=== PATIENT | female | born 1995 | race American Indian/Alaskan Native ===

== ENCOUNTER 2022-02-15 12:24 | Emergency (ER) | payer MEDICAID ==
[2022-02-15] MEDS ORDERED: diphenhydrAMINE 50 MG/ML VIAL IM ONE (13:34)
[2022-02-15] MEDS ORDERED: ZIPRASIDONE MESYLATE 20 MG VIAL IM ONE ×2 (13:34→17:56)
[2022-02-15] MEDS ORDERED: LORazepam 2 MG/ML VIAL IM ONE (13:34)
[2022-02-15 14:42] VITALS: BP 143/99
--- NOTE | 2022-02-15 15:01 | Cat Scan Report ---
CT BRAIN: 02/15/2022 INDICATION / CLINICAL INFORMATION: Psych clearance. COMPARISON: 08/20/2021 FINDINGS: BRAIN/INTRACRANIAL STRUCTURES: Unenhanced CT images of the brain demonstrate no evidence of acute abn ormality. Ventricles and sulci are normal in size and shape. There is no evidence of ischemic injury, EXTRACRANIAL STRUCTURES: Unremarkable. IMPRESSION: No acute abnormality. No change when compared to 08/20/2021. All CT scans at this location are performed using dose reduction to ALARA by means of automated expos ure control. Signer Name: Abbe Hernandez MD Signed: 02/15/2022 2:18 PM Workstation Name: [id number]
--- NOTE | 2022-02-15 15:03 | Emergency Department Report ---
ED Psych HPI - General Stated Complaint: PYSCH Time Seen by Provider: 02/15/22 13:34 Source: patient, old records reviewed Mode of arrival: Ambulatory Limitations: Other - History of Present Illness Initial Comments: Female with unknown age and name presents to the hospital for unclear reason. Patient presented to triage. She refused to speak, refused to make eye contact, and was beginning to pull her clothes off. I evaluated patient in triage and she is standing against a wall with her eyes closed. Mild tachycardia noted on exam. Patient refuses to answer questions. 1013 signed for suspected psychosis and orders placed. Prior to discharge patient's identity was provided. She is a 26-year-old female without a documented psychiatric history as per medical record review. History of cholecystectomy and smoking marijuana - Related Data Allergies Allergy/AdvReac Type Severity Reaction Status Date / Time Unable to Assess Allergy Verified 02/15/22 16:02 ED Review of Systems ROS: Stated complaint: PYSCH Other details as noted in HPI ED Physical Exam - Other Other exam information: General: No acute distress Head: Atraumatic Eyes: normal appearance ENT: Moist mucous membranes Neck: Normal appearance, no midline tenderness Chest: Clear to auscultation bilaterally CV: Tachycardia regular rate Abdomen: Soft, normal bowel sounds, nontender, nondistended, no rebound or guarding Back: Normal inspection Extremity: Normal inspection, full range of motion Neuro: Alert, ambulates without difficulty, nonverbal, no focal weakness, sensation grossly intact Psych: Poor eye contact, nonverbal, intermittently uncooperative Skin: No rash ED Course Vital Signs 02/15/22 14:41 Temperature 98.9 F Pulse Rate 100 H Respiratory 20 Rate Blood Pressure 143/99 [Right] O2 Sat by Pulse 100 Oximetry - Reevaluation(s) Reevaluation #1: 02/15/22 19:14 Patient laying in the stretcher and was noncombative however, when blood draw was attempted she will withdraw her arm and was uncooperative. She 02/15/22 19:42 Patient slept during the majority of her ED stay. Legal Arbitrator informed me that patient is speaking, states she wants to go home, and refusing blood draw. I went to reinterview patient. Patient is now able to state her name and date of (although we had to request this information several times). Patient states she came here for something in her finger and states that she told the triage nurse while she was here. She did not like the response of the triage nurse and states she has refused to speak since then since no one is helping her. Previous medical record reviewed and it does not appear that patient has a previous psych history. I still suspect underlying psych disorder and patient did not began to speak until she received antipsychotic medication. At this time she does not appear to have disorganized thought process or behavior nor does she endorse suicidal homicidal ideation. Therefore 1013 will be rescinded and patient will be discharged home with outpatient resources. She refuses to be reexamined reevaluated for her initial finger complaint ED Medical Decision Making - Radiology Data Radiology results: report reviewed CT BRAIN: 02/15/2022 INDICATION / CLINICAL INFORMATION: Psych clearance. COMPARISON: 08/20/2021 FINDINGS: BRAIN/INTRACRANIAL STRUCTURES: Unenhanced CT images of the brain demonstrate no evidence of acute abnormality. Ventricles and sulci are normal in size and shape. There is no evidence of ischemic injury, EXTRACRANIAL STRUCTURES: Unremarkable. IMPRESSION: No acute abnormality. No change when compared to 08/20/2021. - Medical Decision Making Patient presents to the hospital initially not speaking with unknown name and date of . After receiving Geodon and Benadryl patient began speaking and refused further care. Patient states she wants to go home because we are not doing anything for her and states that she refused to speak because she was upset and tired of answering the same questions. I do suspect that patient does have underlying psychiatric disorder with possible psychosis causing withdrawn behavior. Patient does not meet 1013 criteria at this time and does not appear to be disorganized or have suicidal or homicidal ideation. I have discontinued initial 1013 for refusal to speak and bizarre behavior. CT head was negative and I was unable to obtain any additional blood or urine results during ED stay. She will be discharged with outpatient psychiatric resources since he refuses additional treatment and work-up - Differential Diagnosis Psychosis, drug abuse, Critical Care Time: No Critical care attestation.: If time is entered above; I have spent that time in minutes in the direct care of this critically ill patient, excluding procedure time. ED Disposition Clinical Impression: Mood disorder, Refusal of treatment Disposition: HOME / SELF CARE / HOMELESS Is pt being admited?: No Does the pt Need Aspirin: No Condition: Stable Instructions: Psychosis Additional Instructions: You have refused additional work-up and further treatment. Professional and Agency Contacts To help [facility] (14/02) [place] Crisis Line: Suicide Prevention Line: Crisis Text Line: Text ``START to 728551 Emergency: 911 Outpatient [facility] Behavioral Health Resources: MICHELLE[facility]: [facility] [address], [place] [address] [facility] [address] [place] [address] Tuesday thru Tuesday - 8am - 5pm Call to schedule an assessment for mental health and substance abuse programs [facility] Address: [address] [place] [address] Tuesday thru Tuesday- 7am-2pm [facility] Address: [address] [place] [address] Tuesday thrtuesday: 8:30AM-5PM Referrals: [facility] [Provider Group] - 3-5 Days Time of Disposition: 20:09
[2022-02-15] MEDS ORDERED: diphenhydrAMINE 50 MG/ML VIAL ONE (17:55)
[2022-02-15] MEDS ORDERED: WATER FOR INJ Sterile (PF) 10 ML ONE (17:56)
== END 2022-02-15 20:31 | disposition home or self-care (01) ==
LOC: ED 12:24
DX: F39 Unspecified mood [affective] disorder (principal)
CPT/HCPCS: 70450; 96372; 99283; J1200; J3486

== ENCOUNTER 2022-02-16 10:51 | Emergency (ER) | payer MEDICAID ==
--- NOTE | 2022-02-16 10:57 | Event Note ---
ED Screening Note ED Screening Note: 26-year-old female that was here in the ER yesterday for unclear reasons. She presents again today after expressing SI to her roommate. She is accompanied by police. She has been 1013. She has a mental health history. NOAH is requested [facility] bed. This initial assessment/diagnostic orders/clinical plan/treatment(s) is/are subject to change based on patients health status, clinical progression and re- assessment by fellow clinical providers in the ED. Further treatment and workup at subsequent clinical providers discretion. Patient/guardian urged not to elope from the ED as their condition may be serious if not clinically assessed and managed. Initial orders include: 1013
--- NOTE | 2022-02-16 11:28 | Emergency Department Report ---
ED Psych HPI - General Chief Complaint: Psych Stated Complaint: EVALUATION Time Seen by Provider: 02/16/22 10:54 Source: family, police Mode of arrival: Wheelchair - History of Present Illness Initial Comments: 26-year-old female with unknown past medical history brought in by family and police after behaving erratically, and family having to call police to physically remove her from their vehicle. Patient's family endorsed that patient has been behaving bizarrely at home, recently. Family reported that patient is in treatment with "shots" for mental illness, but has not divulged which diagnosis she has been giving. Patient is uncooperative, appears catatonic on my evaluation and is not answering questions or allowing treatment or evaluation, at this time. Patient was seen here, in the emergency department at [facility], yesterday. - Related Data Allergies Allergy/AdvReac Type Severity Reaction Status Date / Time Unable to Assess Allergy Verified 02/16/22 11:03 ED Review of Systems ROS: Stated complaint: EVALUATION Other details as noted in HPI Comment: Unobtainable due to pts medical conditions (Patient is uncooperative and appears to be acutely psychotic) Respiratory: denies: shortness of breath Gastrointestinal: denies: vomiting, diarrhea Skin: denies: lesions Neurological: confusion Psychiatric: auditory hallucinations, visual hallucinations, other (bizarre behavior) ED Physical Exam - General Limitations: Altered Mental Status General appearance: alert, in no apparent distress, anxious, obese, other (uncooperative) - Head Head exam: Present: atraumatic, normocephalic - Eye Eye exam: Present: normal appearance - ENT ENT exam: Present: mucous membranes moist - Neck Neck exam: Present: normal inspection - Respiratory Respiratory exam: Present: normal lung sounds bilaterally. Absent: respiratory distress - Cardiovascular Cardiovascular Exam: Present: regular rate, tachycardia. Absent: normal rhythm, systolic murmur, diastolic murmur, rubs, gallop - GI/Abdominal GI/Abdominal exam: Present: soft, normal bowel sounds. Absent: tenderness - Rectal Rectal exam: Present: deferred - Extremities Exam Extremities exam: Present: normal inspection, full ROM, normal capillary refill. Absent: tenderness, joint swelling - Back Exam Back exam: Present: normal inspection - Neurological Exam Neurological exam: Present: alert, other (Unable to fully evaluate because of acute psychosis). Absent: oriented X3 - Psychiatric Psychiatric exam: Present: agitated, anxious, manic. Absent: normal affect, normal mood - Skin Skin exam: Present: warm, dry, intact, normal color. Absent: rash ED Course Vital Signs 02/16/22 02/16/22 16:28 21:58 Temperature 99.2 F Pulse Rate 146 H Respiratory 16 Rate Blood Pressure 151/111 [Left] O2 Sat by Pulse 99 100 Oximetry - Reevaluation(s) Reevaluation #1: 02/16/22 21:42 Patient is still awake and agitated and uncooperative. Patient is laying on the floor in her room refusing to wear any clothes and has her legs spread apart. I have ordered another round of sedation to assist being able to medically clear her with urine analysis and COVID swab. ED Medical Decision Making - Lab Data Result diagrams: 02/16/22 11:13 02/16/22 11:13 - Differential Diagnosis Acute psychosis, malingering, substance abuse Critical care attestation.: If time is entered above; I have spent that time in minutes in the direct care of this critically ill patient, excluding procedure time. ED Disposition Clinical Impression: Mood disorder, Refusal of treatment Disposition: 30 STILL A PATIENT Is pt being admited?: No Condition: Stable Referrals: KHUSHBU ODELL MD [Primary Care Provider] - 3-5 Days
[2022-02-16] MEDS ORDERED: LORazepam 2 MG/ML VIAL IM ONE (11:30)
[2022-02-16] MEDS ORDERED: diphenhydrAMINE 50 MG/ML VIAL IM ONE ×2 (11:32→21:29)
[2022-02-16 11:49] LABS: Calcium 10.1 mg/dL (8.4-10.2)
[2022-02-16 12:17] LABS: Basophils % (Auto) 0.2 % (0.0-1.8); Eosinophils % (Auto) 0.1 % (0.0-4.3); Hematocrit 43.4 % (30.3-42.9); Hemoglobin 14.1 gm/dl (10.1-14.3); Lymphocytes # (Auto) 1.6 K/mm3 (1.2-5.4); Lymphocytes % (Auto) 12.2 % (13.4-35.0); Mean Corpuscular HGB Conc 33 % (30-34); Mean Corpuscular Volume 100 fl (79-97); Monocytes # (Auto) 0.9 K/mm3 (0.0-0.8); Monocytes % (Auto) 6.5 % (0.0-7.3); Platelet Count 299 K/mm3 (140-440); Red Blood Count 4.35 M/mm3 (3.65-5.03); Red Cell Distribution Width 13.3 % (13.2-15.2)
[2022-02-16] MEDS: ZIPRASIDONE MESYLATE 20 MG VIAL IM PRN (12:17)
[2022-02-16] MEDS ORDERED: ZIPRASIDONE MESYLATE 20 MG VIAL IM ONE (21:29)
[2022-02-16] MEDS ORDERED: diazePAM 10 MG/2 ML SYRINGE IM ONE (21:30)
--- NOTE | 2022-02-17 15:26 | Consultation ---
History of Present Illness - Reason for Consult Consult date: 02/16/22 Reason for consult: MHE - Chief Complaint Chief complaint: HPI 26year old female was seen yesterday in the ER. Patient stated that she didn't know that reason she was brought in and states that " I just wanted Wilmer to go get my wallet". Patient wasn't able to give an accurate account of who brought her to the hospital and for what reason. Will follow patient, and recommend inpatient psychiatric hospitalization. PAST PSYCHIATRIC HISTORY: Diagnoses: Unknown Suicide attempts or Self-harm behavior: Unable to assess Prior psychiatric hospitalizations:Unable to assess Substance Abuse history:Unable to assess Previous psychiatric medications tried: Unable to assess Outpatient treatment: Unable to assess PAST MEDICAL HISTORY: Family Psychiatric History None reported or documented SOCIAL HISTORY Marital Status: States she is single Living Arrangements: With Wilmer her roommate Employment Status: Unemployed Access to guns/weapons: Unable to assess Education: High school History of Abuse: Unable to assess Legal History: Unable to assess REVIEW OF SYSTEMS ROS cannot be reliably obtained from the patient due to her confusion and somnolence. Constitutional: Negative for weight loss ENT: Negative for stridor Respiratory: Negative for cough or hemoptysis All other systems reviewed and are negative MENTAL STATUS General Appearance and Behavior: poor Cooperation: Cooperative Psychomotor Behavior: poor Mood: Anxious Affect and affective range: Congruent with stated mood Thought Process: Confused Thought Content: Unable to assess Speech: Normal volume and Regular rate and rhythm Intellectual Functioning Average Suicidal Ideation: Unable to assess Homicidal Ideation: Unable to assess Impulse Control: Poor Insight and Judgment: Poor Memory: Unable to assess Attention: Poor Orientation: Unable to assess RECOMMENDATIONS PSYCHOTHERAPY: Supportive psychotherapy provided MEDICAL: Per primary team DELIRIUM PRECAUTIONS: Please re-orient patient frequently, keep lights on during the day, and minimize benzodiazepines and opiates as these medications could worsen patient's confusion. SHOE STOCK ASSOCIATE: Defer to primary team DISPOSITION: Per primary team, acute inpatient psychiatric hospitalization when medically stable LEGAL STATUS: 1013 FOLLOW-UP: Will follow Medications and Allergies Allergies Allergy/AdvReac Type Severity Reaction Status Date / Time Unable to Assess Allergy Verified 02/16/22 11:03 Active Meds: Active Medications Ziprasidone (Ziprasidone Mesylate 20 Mg Vial) 10 mg IM Q2H PRN PRN Reason: Agitation Last Admin: 02/16/22 12:17 Dose: 10 mg Mental Status Exam - Vital signs Last Vital Signs Temp 98 F 02/17/22 14:22 Pulse 106 H 02/17/22 14:22 Resp 18 02/17/22 14:22 BP 139/95 02/17/22 14:22 Pulse Ox 97 02/17/22 14:22 Results Result Diagrams: 02/16/22 11:13 02/16/22 11:13 All other labs normal.
--- NOTE | 2022-02-17 15:31 | Progress Note ---
Subjective - Reason for Consult Reason for consult: MHE - Chief Complaint Chief complaint: Patient seen today in the ER. Patient took of all her clothes and defecated on the floor. Unable to communicate with patient at this time. Recommend inpatient psychiatric evaluation at this time. PAST PSYCHIATRIC HISTORY: Diagnoses: Unknown Suicide attempts or Self-harm behavior: Unable to assess Prior psychiatric hospitalizations:Unable to assess Substance Abuse history:Unable to assess Previous psychiatric medications tried: Unable to assess Outpatient treatment: Unable to assess PAST MEDICAL HISTORY: Family Psychiatric History None reported or documented SOCIAL HISTORY Marital Status: States she is single Living Arrangements: With Wilmer her roommate Employment Status: Unemployed Access to guns/weapons: Unable to assess Education: High school History of Abuse: Unable to assess Legal History: Unable to assess REVIEW OF SYSTEMS ROS cannot be reliably obtained from the patient due to her confusion and somnolence. Constitutional: Negative for weight loss ENT: Negative for stridor Respiratory: Negative for cough or hemoptysis All other systems reviewed and are negative MENTAL STATUS General Appearance and Behavior: poor Cooperation: Cooperative Psychomotor Behavior: poor Mood: Anxious Affect and affective range: Congruent with stated mood Thought Process: Confused Thought Content: Unable to assess Speech: Normal volume and Regular rate and rhythm Intellectual Functioning Average Suicidal Ideation: Unable to assess Homicidal Ideation: Unable to assess Impulse Control: Poor Insight and Judgment: Poor Memory: Unable to assess Attention: Poor Orientation: Unable to assess RECOMMENDATIONS PSYCHOTHERAPY: Supportive psychotherapy provided MEDICAL: Per primary team DELIRIUM PRECAUTIONS: Please re-orient patient frequently, keep lights on during the day, and minimize benzodiazepines and opiates as these medications could worsen patient's confusion. COMMUNICATIONS EXECUTIVE: Defer to primary team DISPOSITION: Per primary team, acute inpatient psychiatric hospitalization when medically stable LEGAL STATUS: 1013 FOLLOW-UP: Will follow Mental Status Exam - Vital signs Last Vital Signs Temp 98 F 02/17/22 14:22 Pulse 106 H 02/17/22 14:22 Resp 18 02/17/22 14:22 BP 139/95 02/17/22 14:22 Pulse Ox 97 02/17/22 14:22
[2022-02-17] MEDS: risperiDONE 0.25 MG TAB PO SCH ×3 (16:15→23:14)
--- NOTE | 2022-02-17 18:16 | Event Note ---
Date: 02/17/22 Reassessment by psych today was unsuccessful due to patient taking off her close and defecating on herself. Patient remains a 1013.
[2022-02-18] MEDS: ZIPRASIDONE MESYLATE 20 MG VIAL IM PRN ×2 (08:28→14:01)
[2022-02-18] MEDS: risperiDONE 0.25 MG TAB PO SCH ×2 (09:45→22:00)
--- NOTE | 2022-02-18 15:37 | Progress Note ---
Subjective - Reason for Consult Reason for consult: MHE - Chief Complaint Chief complaint: Date of service: 02/18/22 Patient seen today. Patient states that she is "Doing ok". Patient states that she is hearing voices to "Get out of my head" Patient stopped talking after these sentences and started to pace and play with the gloves she had on. Patient also observed playing with the trash bag, and tried touching me. Patient waiting inpatient placement. Patient seen today in the ER. Patient took of all her clothes and defecated on the floor. Unable to communicate with patient at this time. Recommend inpatient psychiatric evaluation at this time. PAST PSYCHIATRIC HISTORY: Diagnoses: Unknown Suicide attempts or Self-harm behavior: Unable to assess Prior psychiatric hospitalizations:Unable to assess Substance Abuse history:Unable to assess Previous psychiatric medications tried: Unable to assess Outpatient treatment: Unable to assess PAST MEDICAL HISTORY: Family Psychiatric History None reported or documented SOCIAL HISTORY Marital Status: States she is single Living Arrangements: With Wilmer her roommate Employment Status: Unemployed Access to guns/weapons: Unable to assess Education: High school History of Abuse: Unable to assess Legal History: Unable to assess REVIEW OF SYSTEMS ROS cannot be reliably obtained from the patient due to her confusion and somnolence. Constitutional: Negative for weight loss ENT: Negative for stridor Respiratory: Negative for cough or hemoptysis All other systems reviewed and are negative MENTAL STATUS General Appearance and Behavior: poor Cooperation: Cooperative Psychomotor Behavior: poor Mood: Anxious Affect and affective range: Congruent with stated mood Thought Process: Confused Thought Content: Unable to assess Speech: Normal volume and Regular rate and rhythm Intellectual Functioning Average Suicidal Ideation: Unable to assess Homicidal Ideation: Unable to assess Impulse Control: Poor Insight and Judgment: Poor Memory: Unable to assess Attention: Poor Orientation: Unable to assess RECOMMENDATIONS PSYCHOTHERAPY: Supportive psychotherapy provided MEDICAL: Per primary team DELIRIUM PRECAUTIONS: Please re-orient patient frequently, keep lights on during the day, and minimize benzodiazepines and opiates as these medications could worsen patient's confusion. MANUFACTURING SPECIALIST: Defer to primary team DISPOSITION: Per primary team, acute inpatient psychiatric hospitalization when medically stable LEGAL STATUS: 1013 FOLLOW-UP: Will follow Mental Status Exam - Vital signs Last Vital Signs Temp 98.7 F 02/18/22 08:29 Pulse 126 H 02/18/22 08:29 Resp 20 02/18/22 08:29 BP 139/86 02/18/22 08:29 Pulse Ox 97 02/18/22 08:30
--- NOTE | 2022-02-18 15:56 | Event Note ---
Date: 02/18/22 Patient's chart reviewed. Vital signs stable. Patient reassessed by me. She is observed to be lying supine on her stretcher, talking to herself, her legs are in the air,. Patient continues to await final disposition by psychiatry
[2022-02-19] MEDS: risperiDONE 0.25 MG TAB PO SCH (09:32)
--- NOTE | 2022-02-19 11:29 | Progress Note ---
Subjective - Reason for Consult Consult date: 02/19/22 Reason for consult: psychosis - Chief Complaint Chief complaint: The patient was seen today. She is in seclusion. She is acting bizarrely. She is acutely psychotic. She is eating with her hands. She is standing in front of the window squeezing the carton of juice out into her mouth. Her shirt is ripped and tied on her. Her breast are hanging out of two holes that she made in the shirt. The patient is malodorous. She says she's hearing voices telling her they love her. I ask the patient if she knows where she is, she replies "everywhere." She then keeps repeating "they love me." Will continue to recommend inpatient psychiatric treatment REVIEW OF SYSTEMS Unable to assess MENTAL STATUS Unable to assess Assessment: Schizophrenia Treatment Plan 1013 Please obtain and document allergies Increase Risperidone 1mg po BID PSYCHOTHERAPY: Supportive psychotherapy provided MEDICAL: Per primary team DELIRIUM PRECAUTIONS: Please re-orient patient frequently, keep lights on during the day, and minimize benzodiazepines and opiates as these medications could worsen patient's confusion. RAYMOND MILL OPERATOR: Defer to primary team DISPOSITION: Recommend acute psychiatric inpatient treatment FOLLOW-UP: Will follow. Thanks Case staffed with Dr. Finley Mental Status Exam - Vital signs Last Vital Signs Temp 97.8 F 02/19/22 03:22 Pulse 114 H 02/19/22 03:22 Resp 18 02/19/22 03:22 BP 164/92 02/19/22 03:22 Pulse Ox 97 02/19/22 03:22
[2022-02-19] MEDS ORDERED: DIVALPROEX DR 125 MG TAB PO SCH (12:00)
[2022-02-19] MEDS: risperiDONE 1 MG TAB PO SCH ×2 (16:50→22:10)
--- NOTE | 2022-02-19 18:59 | Emergency Department Report ---
Blank Doc - Documentation Documentation: Chart reviewed 26-year-old female remains on 1013. Requiring seclusion. Intermittently refusing p.o. medication. Urine collection pending. Placement pending
--- NOTE | 2022-02-20 09:39 | Progress Note ---
Subjective - Reason for Consult Consult date: 02/20/22 Reason for consult: psychosis - Chief Complaint Chief complaint: The patient was seen today. She is in seclusion. Her room is trashed. She is acutely psychotic. The patient is standing at the window holding her arm up with her index finger pointed to the ceiling. She is naked. Will continue to recommend inpatient psychiatric treatment. Unable to obtain allergies. Will continue current plan until obtained and documented. REVIEW OF SYSTEMS Unable to assess MENTAL STATUS Unable to assess Assessment: Schizophrenia Treatment Plan 1013 Please obtain and document allergies Risperidone 1mg po BID PSYCHOTHERAPY: Supportive psychotherapy provided MEDICAL: Per primary team DELIRIUM PRECAUTIONS: Please re-orient patient frequently, keep lights on during the day, and minimize benzodiazepines and opiates as these medications could worsen patient's confusion. SOLDER MAKING LABORER: Defer to primary team DISPOSITION: Recommend acute psychiatric inpatient treatment FOLLOW-UP: Will follow. Thanks Case staffed with Dr. Finley Mental Status Exam - Vital signs Last Vital Signs Temp 97.8 F 02/19/22 03:22 Pulse 114 H 02/19/22 03:22 Resp 18 02/19/22 03:22 BP 164/92 02/19/22 03:22 Pulse Ox 97 02/19/22 03:22
[2022-02-20] MEDS: risperiDONE 1 MG TAB PO SCH ×2 (11:27→22:16)
[2022-02-20] MEDS: ZIPRASIDONE MESYLATE 20 MG VIAL IM PRN (13:40)
--- NOTE | 2022-02-20 14:43 | Event Note ---
Date: 02/20/22 The patient was evaluated in the emergency department for symptoms described in the history of present illness. He/she was evaluated in the context of the global COVID-19 pandemic, which necessitated consideration that the patient might be at risk for infection with the virus that causes COVID-19. Institutional protocols and algorithms that pertain to the evaluation of patients at risk for COVID-19 are in a state of rapid change based on information released by regulatory bodies including the CDC and federal and state organizations. These policies and algorithms were followed during the patient's care in the emergency department. Please note that these policies, procedures and recommendations changed on a rapid basis. Laboratory studies, vital signs, nursing documentation, ER documentation, and psychiatric documentation are reviewed and appreciated. The patient is awake and psychotic and naked in her room. Nursing team will communicate with psychiatric team to request IM as needed medications, as the patient is refusing oral medications. The patient is awake and ambulating and she is protecting her airway. The patient was deemed medically suitable for psychiatric disposition and placement during her initial ER evaluation. The patient continues to remain medically suitable for psychiatric placement and disposition. She is currently pending psychiatric placement. The emergency room will follow along as the patient provides urinalysis and drug screen. These tests are not required to exclude emergent medical conditions. This patient remains medically suitable for psychiatric placement and disposition at this time Vital Signs 02/16/22 02/16/22 02/17/22 16:28 21:58 11:00 Temperature 99.2 F Pulse Rate 146 H Respiratory 16 Rate Blood Pressure 151/111 [Left] Blood Pressure [Right] O2 Sat by Pulse 99 100 97 Oximetry 02/17/22 02/17/22 02/17/22 14:22 20:38 21:10 Temperature 98 F 98.9 F Pulse Rate 106 H 100 H Respiratory 18 16 18 Rate Blood Pressure 139/95 153/82 [Left] Blood Pressure [Right] O2 Sat by Pulse 97 98 98 Oximetry 02/18/22 02/18/22 02/18/22 08:29 08:30 21:43 Temperature 98.7 F Pulse Rate 126 H 99 H Respiratory 20 18 Rate Blood Pressure 139/86 140/60 [Left] Blood Pressure [Right] O2 Sat by Pulse 97 97 98 Oximetry 02/19/22 02/20/22 03:22 11:26 Temperature 97.8 F Pulse Rate 114 H Respiratory 18 Rate Blood Pressure [Left] Blood Pressure 164/92 [Right] O2 Sat by Pulse 97 96 Oximetry Lab Results 02/16/22 02/16/22 02/16/22 Range/Units 11:13 11:13 11:13 WBC 13.1 H (4.5-11.0) K/mm3 RBC 4.35 (3.65-5.03) M/mm3 Hgb 14.1 (10.1-14.3) gm/dl Hct 43.4 H (30.3-42.9) % MCV 100 H (79-97) fl MCH 32 (28-32) pg MCHC 33 (30-34) % RDW 13.3 (13.2-15.2) % Plt Count 299 (140-440) K/mm3 Lymph % (Auto) 12.2 L (13.4-35.0) % [place] % (Auto) 6.5 (0.0-7.3) % Eos % (Auto) 0.1 (0.0-4.3) % Baso % (Auto) 0.2 (0.0-1.8) % Lymph # (Auto) 1.6 (1.2-5.4) K/mm3 [place] # (Auto) 0.9 H (0.0-0.8) K/mm3 Eos # (Auto) 0.0 (0.0-0.4) K/mm3 Baso # (Auto) 0.0 (0.0-0.1) K/mm3 Seg Neutrophils % 81.0 H (40.0-70.0) % Seg Neutrophils # 10.6 H (1.8-7.7) K/mm3 Sodium 139 (137-145) mmol/L Potassium 4.1 (3.6-5.0) mmol/L Chloride 99.8 (98-107) mmol/L Carbon Dioxide 20 L (22-30) mmol/L Anion Gap 23 mmol/L BUN 9 (7-17) mg/dL Creatinine 1.3 H (0.6-1.2) mg/dL Estimated GFR 59 ml/min BUN/Creatinine Ratio 7 % Glucose 179 H (65-100) mg/dL Calcium 10.1 (8.4-10.2) mg/dL TSH 1.860 (0.270-4.200) mlU/mL HCG, Qual (Negative) Salicylates (2.8-20.0) mg/dL Acetaminophen (10.0-30.0) ug/mL Plasma/Serum Alcohol (0-0.07) % SARS-CoV-2 (PCR) (Negative) 02/16/22 02/16/22 02/16/22 Range/Units 11:13 11:13 11:13 WBC (4.5-11.0) K/mm3 RBC (3.65-5.03) M/mm3 Hgb (10.1-14.3) gm/dl Hct (30.3-42.9) % MCV (79-97) fl MCH (28-32) pg MCHC (30-34) % RDW (13.2-15.2) % Plt Count (140-440) K/mm3 Lymph % (Auto) (13.4-35.0) % [place] % (Auto) (0.0-7.3) % Eos % (Auto) (0.0-4.3) % Baso % (Auto) (0.0-1.8) % Lymph # (Auto) (1.2-5.4) K/mm3 [place] # (Auto) (0.0-0.8) K/mm3 Eos # (Auto) (0.0-0.4) K/mm3 Baso # (Auto) (0.0-0.1) K/mm3 Seg Neutrophils % (40.0-70.0) % Seg Neutrophils # (1.8-7.7) K/mm3 Sodium (137-145) mmol/L Potassium (3.6-5.0) mmol/L Chloride (98-107) mmol/L Carbon Dioxide (22-30) mmol/L Anion Gap mmol/L BUN (7-17) mg/dL Creatinine (0.6-1.2) mg/dL Estimated GFR ml/min BUN/Creatinine Ratio % Glucose (65-100) mg/dL Calcium (8.4-10.2) mg/dL TSH (0.270-4.200) mlU/mL HCG, Qual (Negative) Salicylates < 0.3 L (2.8-20.0) mg/dL Acetaminophen 5.0 L (10.0-30.0) ug/mL Plasma/Serum Alcohol < 0.01 (0-0.07) % SARS-CoV-2 (PCR) (Negative) 02/16/22 02/17/22 Range/Units 11:13 10:08 WBC (4.5-11.0) K/mm3 RBC (3.65-5.03) M/mm3 Hgb (10.1-14.3) gm/dl Hct (30.3-42.9) % MCV (79-97) fl MCH (28-32) pg MCHC (30-34) % RDW (13.2-15.2) % Plt Count (140-440) K/mm3 Lymph % (Auto) (13.4-35.0) % [place] % (Auto) (0.0-7.3) % Eos % (Auto) (0.0-4.3) % Baso % (Auto) (0.0-1.8) % Lymph # (Auto) (1.2-5.4) K/mm3 [place] # (Auto) (0.0-0.8) K/mm3 Eos # (Auto) (0.0-0.4) K/mm3 Baso # (Auto) (0.0-0.1) K/mm3 Seg Neutrophils % (40.0-70.0) % Seg Neutrophils # (1.8-7.7) K/mm3 Sodium (137-145) mmol/L Potassium (3.6-5.0) mmol/L Chloride (98-107) mmol/L Carbon Dioxide (22-30) mmol/L Anion Gap mmol/L BUN (7-17) mg/dL Creatinine (0.6-1.2) mg/dL Estimated GFR ml/min BUN/Creatinine Ratio % Glucose (65-100) mg/dL Calcium (8.4-10.2) mg/dL TSH (0.270-4.200) mlU/mL HCG, Qual Negative (Negative) Salicylates (2.8-20.0) mg/dL Acetaminophen (10.0-30.0) ug/mL Plasma/Serum Alcohol (0-0.07) % SARS-CoV-2 (PCR) Negative (Negative)
[2022-02-20 18:54] LABS: Amphetamine Screen,Urine Negative; Bacteria,Urine 1+ /HPF (Negative); Benzodiazepines Screen,Urine Negative; Cannabinoid Screen,Urine Negative; Cocaine Screen,Urine Negative; Methadone Screen,Urine Negative; Mucus,Urine 1+ /HPF; Opiate Screen,Urine Negative
[2022-02-20 19:16] LABS: Bilirubin,Urine Negative (Negative); Blood,Urine 4+ (Negative); Color,Urine Yellow (Yellow)
[2022-02-20] MEDS ORDERED: LORazepam 2 MG/ML VIAL IM PRN (20:14)
[2022-02-21] MEDS: risperiDONE 1 MG TAB PO SCH ×3 (05:01→22:27)
[2022-02-21] MEDS: HALOPERIDOL LACTATE 5 MG/1 ML INJ IM PRN (05:06)
--- NOTE | 2022-02-21 11:18 | Progress Note ---
Subjective - Reason for Consult Consult date: 02/21/22 Reason for consult: psychosis - Chief Complaint Chief complaint: The patient was seen today. She is a little more calm and organized today, but still psychotic. She appears distracted. She is talking in a low tone. She says she's not taking any of the medication because it makes her numb in some spots. I ask her what medication was she taking that made her feel like this, she continue to repeat "numb in some spots." REVIEW OF SYSTEMS Unable to assess MENTAL STATUS Unable to assess Assessment: Schizophrenia Treatment Plan 1013 If the patient refuses oral antipsychotic please give IM as needed q6h Risperidone 1mg po BID PSYCHOTHERAPY: Supportive psychotherapy provided MEDICAL: Per primary team DELIRIUM PRECAUTIONS: Please re-orient patient frequently, keep lights on during the day, and minimize benzodiazepines and opiates as these medications could worsen patient's confusion. 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 Thanks Case staffed with Dr. Finley Mental Status Exam - Vital signs Last Vital Signs Temp 99.2 F 02/20/22 20:14 Pulse 124 H 02/20/22 20:14 Resp 16 02/20/22 20:14 BP 137/101 02/20/22 20:14 Pulse Ox 98 02/20/22 20:14
--- NOTE | 2022-02-21 16:44 | Event Note ---
Date: 02/21/22 The patient was evaluated in the emergency department for symptoms described in the history of present illness. He/she was evaluated in the context of the global COVID-19 pandemic, which necessitated consideration that the patient might be at risk for infection with the virus that causes COVID-19. Institutional protocols and algorithms that pertain to the evaluation of patients at risk for COVID-19 are in a state of rapid change based on information released by regulatory bodies including the CDC and federal and state organizations. These policies and algorithms were followed during the patient's care in the emergency department. Please note that these policies, procedures and recommendations changed on a rapid basis. Laboratory studies, vital signs, nursing documentation, ER documentation, and psychiatric documentation are reviewed and appreciated. Patient continues to stripped naked. She remains acutely psychotic She is breathing spontaneously, protecting her airway, and moving 4 extremities The patient is awake and laying on her stomach and not in any acute distress The patient was deemed medically suitable for psychiatric disposition and placement during her initial ER evaluation. The patient continues to remain medically suitable for psychiatric placement and disposition. She is currently pending psychiatric placement. Vital Signs 02/16/22 02/16/22 02/17/22 16:28 21:58 11:00 Temperature 99.2 F Pulse Rate 146 H Respiratory 16 Rate Blood Pressure 151/111 [Left] Blood Pressure [Right] O2 Sat by Pulse 99 100 97 Oximetry 02/17/22 02/17/22 02/17/22 14:22 20:38 21:10 Temperature 98 F 98.9 F Pulse Rate 106 H 100 H Respiratory 18 16 18 Rate Blood Pressure 139/95 153/82 [Left] Blood Pressure [Right] O2 Sat by Pulse 97 98 98 Oximetry 02/18/22 02/18/22 02/18/22 08:29 08:30 21:43 Temperature 98.7 F Pulse Rate 126 H 99 H Respiratory 20 18 Rate Blood Pressure 139/86 140/60 [Left] Blood Pressure [Right] O2 Sat by Pulse 97 97 98 Oximetry 02/19/22 02/20/22 02/20/22 03:22 11:26 20:14 Temperature 97.8 F 99.2 F Pulse Rate 114 H 124 H Respiratory 18 16 Rate Blood Pressure [Left] Blood Pressure 164/92 137/101 [Right] O2 Sat by Pulse 97 96 98 Oximetry 02/21/22 02/21/22 11:57 11:58 Temperature 98.7 F Pulse Rate 99 H Respiratory 18 Rate Blood Pressure [Left] Blood Pressure 131/69 [Right] O2 Sat by Pulse 100 100 Oximetry
--- NOTE | 2022-02-22 10:15 | Progress Note ---
Subjective - Reason for Consult Consult date: 02/22/22 Reason for consult: psychosis - Chief Complaint Chief complaint: The patient was seen today. She is in seclusion. Food and food trays are scattered over her floor. She is kicking items in the corner. The patient does answer simple questions, although she is slow to respond. Her affect is flat and she is moving in a slow motion. The patient denies SI/HI or hallucinations, although it is obvious she is responding to internal stimuli. Nurses documented the patient standing on lounge chairs, on knees digging in butt and defecating on floor. REVIEW OF SYSTEMS Unable to assess MENTAL STATUS Unable to assess Assessment: Schizophrenia Treatment Plan 1013 Give Lorazepam 2mg IM now If the patient refuses oral antipsychotic please give IM as needed q6h Increase Risperidone 1.5mg po BID PSYCHOTHERAPY: Supportive psychotherapy provided MEDICAL: Per primary team DELIRIUM PRECAUTIONS: Please re-orient patient frequently, keep lights on during the day, and minimize benzodiazepines and opiates as these medications could worsen patient's confusion. 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 Thanks Case staffed with Dr. Finley Mental Status Exam - Vital signs Last Vital Signs Temp 98.7 F 02/21/22 11:57 Pulse 99 H 02/21/22 11:57 Resp 18 02/21/22 11:57 BP 131/69 02/21/22 11:57 Pulse Ox 100 02/21/22 11:58
[2022-02-22] MEDS: risperiDONE 1 MG TAB PO SCH ×2 (10:53→11:10)
[2022-02-22] MEDS ORDERED: cephALEXin 500 MG CAP PO ONE (11:07)
[2022-02-23] MEDS: HALOPERIDOL LACTATE 5 MG/1 ML INJ IM PRN ×2 (05:22→12:00)
[2022-02-23] MEDS: risperiDONE 1 MG TAB PO SCH ×2 (08:26→09:45)
--- NOTE | 2022-02-23 09:44 | Progress Note ---
Subjective - Reason for Consult Consult date: 02/23/22 Reason for consult: psychosis - Chief Complaint Chief complaint: The patient was seen today. She is coming out of the shower. She is a lot better, but still disorganized. The patient has a soaking wet towel wrapped around her head. Staff says the patient has been taking showers fully dressed. The patient says she feels okay, "just want some coffee." She has an open wound on her left breast, that is draining. I instructed the nurse to inform the attending ER doc. The patient still endorses hearing voices. She says "a lot of dumb, negative stuff." She then says "I don't know what they are saying." She denies SI/HI. REVIEW OF SYSTEMS Unable to assess MENTAL STATUS Unable to assess Assessment: Schizophrenia Treatment Plan 1013 The patient is awaiting placement but was refused due to elevated white count. This is likely due to draining, open wound the patient has on left breast. If the patient refuses oral antipsychotic please give IM as needed q6h Increase Risperidone 2mg po BID PSYCHOTHERAPY: Supportive psychotherapy provided MEDICAL: Per primary team DELIRIUM PRECAUTIONS: Please re-orient patient frequently, keep lights on during the day, and minimize benzodiazepines and opiates as these medications could worsen patient's confusion. 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 Thanks Case staffed with Dr. Finley Mental Status Exam - Vital signs Last Vital Signs Temp 98.6 F 02/23/22 07:56 Pulse 74 02/23/22 07:56 Resp 18 02/23/22 07:56 BP 152/78 02/23/22 07:56 Pulse Ox 98 02/23/22 07:56
[2022-02-23] MEDS ORDERED: NEOMY 3.5 MG/BACIT 400 UNITS/POLY B 5000 UNITS/GM OINT PACKET TP ONE (11:48)
[2022-02-24] MEDS: risperiDONE 1 MG TAB PO SCH ×2 (10:45→22:26)
[2022-02-24] MEDS: SULFAMETHOXAZOLE/TRIMETHOPRIM 800/160MG DS TAB PO SCH ×2 (10:45→22:26)
--- NOTE | 2022-02-24 14:18 | Progress Note ---
Subjective - Reason for Consult Consult date: 02/24/22 Reason for consult: psychosis - Chief Complaint Chief complaint: The patient was seen today. Staff says she continues to shower fully dressed. However, the patient does appear slightly more organized today. She says she feels okay. She is shaking. I ask her why, she says she's cold. The patient is moving slow and slow to respond. Her affect is flat. She makes poor eye contact. She says she hears water flowing. REVIEW OF SYSTEMS Unable to assess MENTAL STATUS Unable to assess Assessment: Schizophrenia Treatment Plan 1013 The patient is awaiting placement but was refused due to elevated white count. This is likely due to draining, open wound the patient has on left breast. If the patient refuses oral antipsychotic please give IM as needed q6h Increase Risperidone 2mg po BID PSYCHOTHERAPY: Supportive psychotherapy provided MEDICAL: Per primary team DELIRIUM PRECAUTIONS: Please re-orient patient frequently, keep lights on during the day, and minimize benzodiazepines and opiates as these medications could worsen patient's confusion. 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 Thanks Case staffed with Dr. Finley Mental Status Exam - Vital signs Last Vital Signs Temp 97.6 F 02/24/22 08:11 Pulse 101 H 02/24/22 08:11 Resp 18 02/24/22 08:11 BP 135/99 02/24/22 08:11 Pulse Ox 98 02/24/22 10:50
[2022-02-24] MEDS: HALOPERIDOL LACTATE 5 MG/1 ML INJ IM PRN (14:55)
[2022-02-25] MEDS: SULFAMETHOXAZOLE/TRIMETHOPRIM 800/160MG DS TAB PO SCH (09:41)
[2022-02-25] MEDS: risperiDONE 1 MG TAB PO SCH (09:41)
[2022-02-25 10:30] VITALS: BP 136/82
--- NOTE | 2022-02-25 10:35 | Progress Note ---
Subjective - Reason for Consult Consult date: 02/25/22 Reason for consult: psychosis - Chief Complaint Chief complaint: The patient was seen today. She is doing much better. Her thoughts are more organized. She says she slept good. She is asking to have juice in the mornings. The patient says "I feel a lot better, just exhausted." She denies SI/HI or hallucinations. She ask me if I can call her friend "Wilmer Nava at [phone]." I called Mr. Nava, he says he knows the patient. He says she lives with him and he can pick her up when she's ready. The patient can now be managed from an outpatient basis. Please allow the patient to discharge in the care of her friend. REVIEW OF SYSTEMS Unable to assess MENTAL STATUS Unable to assess Assessment: Schizophrenia Treatment Plan d/c 1013 Risperidone 2mg po BID PSYCHOTHERAPY: Supportive psychotherapy provided MEDICAL: Per primary team DELIRIUM PRECAUTIONS: Please re-orient patient frequently, keep lights on during the day, and minimize benzodiazepines and opiates as these medications could worsen patient's confusion. 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 The patient and her friend understand that if SI/HI or any fear of endangerment arise they are to seek immediate assistance. The direct service worker to further discuss safety plan and give the patient all necessary resources. She is to follow up with outpatient psych in 7 to 14 days upon discharge FOLLOW-UP: Will sign off Thanks Case staffed with Dr. Finley Mental Status Exam - Vital signs Last Vital Signs Temp 98.2 F 02/25/22 10:26 Pulse 78 02/25/22 10:26 Resp 16 02/25/22 10:26 BP 136/82 02/25/22 10:26 Pulse Ox 100 02/25/22 10:26
== END 2022-02-25 12:10 | disposition still patient (30) ==
LOC: ED 10:51 → EEVIPCON 10:51 → ED 02-25 12:10
DX: F39 Unspecified mood [affective] disorder (principal); Z53.20 Procedure and treatment not carried out because of patient's decision for unspecified reasons; Z20.822 Contact with and (suspected) exposure to COVID-19; Z79.899 Other long term (current) drug therapy
CPT/HCPCS: 36415; 80048; 80307; 81001; 84443; 84703; 85025; 87086; 96372; 99284; J1200; J1630; J2060; J3486; U0003; 80320; G0480